=== PATIENT | female | born 1995 | race Caucasian/White ===

== ENCOUNTER 2016-06-03 15:10 | Emergency (ER) | payer OTHER ==
[2016-06-03 15:31] VITALS: BP 125/76; BMI 29.0
[2016-06-03 15:40] LABS: BILIRUBIN,URINE NEGATIVE (NEGATIVE); BLOOD/HEMOGLOBIN,URINE 1+ (NEGATIVE); GLUCOSE, URINE 4+ (NEGATIVE); KETONES,URINE 1+ (NEGATIVE); LEUKOCYTE ESTERASE ,URINE 1+ (NEGATIVE); NITRITES,URINE NEGATIVE (NEGATIVE); PROTEIN,URINE 1+ (NEGATIVE); UROBILINOGEN,URINE NORMAL (NORMAL)
[2016-06-03 15:54] LABS: APPEARANCE,URINE HAZY (CLEAR); BACTERIA,URINE TRACE /HPF (NEGATIVE); COLOR,URINE YELLOW (YELLOW); MUCUS,URINE FEW /HPF (NEGATIVE); RBC,URINE 0-2 /HPF (NEGATIVE); SQUAMOUS EPITHELIAL CELL,UR FEW /HPF (NEGATIVE)
[2016-06-03] MEDS ORDERED: XYLOCAINE VISCOUS ONE (16:11)
[2016-06-03] MEDS ORDERED: XYLOCAINE VISCOUS MT ONE (16:17)
--- NOTE | 2016-06-03 16:32 | DR.PREG ---
HPI - Time seen Time seen: 16:20 - PCP Primary Care Physician: JOLLY - HPI Comment HPI Comment: PATIENT IS G2PI 34 WEEKS DUE DATE O. LAST NIGHT REATAL STARTED. HEMORRHIOD WAS SWOLLEN AND PAIN. WORSE TODAY. NO ABDOMINAL PAIN OR VAGINAL BLEEDING OR DISCHARGE. MOVEMENT IS NORMAL. SEE OB WEEKLY. HAVE GESTATIONAL DIABETES. - Chief Complaint Chief Complaint Doctors Comments: HEMORRHOID PAIN AND SWELLING TIMES ONE DAY. Chief Complaint:: PT. C/O SEVERE RECTAL PAIN THAT STARTED LAST NIGHT. PT. DENIES ANY ABDOMINAL PAIN OR VAGINAL PRESSURE. - Nurses Notes Reviewed Nurses Notes Review: Yes - Source History Provided: Patient - Mode of Arrival Mode of Arrival: Ambulatory - Context Complains of: denies: Pelvic pain, Contractions, Vaginal bleeding, Decreased movement, Vaginal fluid leakage History of: Previous (GESTATIONAL DIABETES) Care: Yes - Location Location: pain: denies: Diffuse (RECTAL PAIN) - Quality Pain: Sharp Vaginal fluid leakage color: None - Timing Onset of Chief Complaint: 06/02/16 PMH - PMH Past Medical History: Yes Past Medical History Comment: GESTATIONAL DIABETES Past Surgical History: Yes Surgical History: - Family History History of Family Medical Conditions: No - Social History Does patient currently use any type of tobacco product: No Have you used tobacco products in the last 12 months: No Type of Tobacco Use: None Does any household member use tobacco: No Alcohol Use: None Do you use any recreational Drugs:: No Lives With: Family Lives Where: Home - infectious screening In the last 2 months have you had wt loss of >10#?: NO Have you had fever, night sweats or hemotysis?: No Have you traveled outside the country in the last 6 months?: No Isolation: Standard ROS - Review of Systems Constitutional: No Symptoms Reported Eyes: No Symptoms Reported ENTM: No Symptoms Reported Respiratoy: No Symptoms Reported Cardiovascular: No Symptoms Reported Gastrointestinal/Abdominal: Other (RECTAL PAIN) Genitourinary: Frequency (THIRD TRIMESTER), Other (RECTAL PAIN) Neurological: No Symptoms Reported Musculoskeletal: No Symptoms Reported Integumentary: No Symptoms Reported Hematologic/Lymphatic: No Symptoms Reported Endocrine: No Symptoms Reported All Other Systems: Reviewed and Negative PE - Vital Signs Vitals: Temperature 97.9 F Pulse Rate 112 Respiratory Rate 18 Blood Pressure [Left Arm] 141/94 Blood Pressure [Right Arm] 120/81 Blood Pressure 125/76 O2 Sat by Pulse Oximetry 99 - General Limitations: No Limitations General Appearance: Alert - Head Head Exam: Normal Inspection - Eyes Eye exam: Normal Appearance - ENT ENT Exam: Normal External Ear Exam - Neck Neck Exam: Normal Inspection - Chest Chest Inspection: Symmetric Chest Wall Rise - Respiratory Respiratory Exam: Normal Lung Sounds Bilat Respiratory Exam: Bilateral Clear to Auscultation - Cardiovascular Cardiovascular Exam: Regular Rate, Normal Rhythm, Normal Heart Sounds - Abdominal Exam Abdominal Exam: Normal Bowel Sounds, Soft, Other (HEMORRHOID IN RECTAL AREA INFLAME AND TENDER.) MDM - Additional Information Obtained Additional Information Obtained From: Family - Differential Diagnosis Differential Diagnosis: negative: Cystitis: acute (INFLAME HEMORRHOID IN RECTA AREA.) Course - Treatment Treatment: SEE ORDERS. - Education/Counseling Education/Counseling: Patient, Family, Education Educated On: Treatment, Diagnosis, Needs for Follow Up ROR - Labs Reviewed Laboratory: Specimen Type Clean catch urine 06/03/16 15:24 Urine Color Yellow (YELLOW) 06/03/16 15:24 Urine Appearance Hazy (CLEAR) 06/03/16 15:24 Urine pH 6.0 (5.0 - 8.0) 06/03/16 15:24 Ur Specific [place] 1.025 (1.000-1.030) 06/03/16 15:24 Urine Protein 1+ (NEGATIVE) 06/03/16 15:24 Urine Glucose (UA) 4+ (NEGATIVE) 06/03/16 15:24 Urine Ketones 1+ (NEGATIVE) 06/03/16 15:24 Urine Occult Blood 1+ (NEGATIVE) 06/03/16 15:24 Urine Nitrite Negative (NEGATIVE) 06/03/16 15:24 Urine Bilirubin Negative (NEGATIVE) 06/03/16 15:24 Urine Urobilinogen Normal (NORMAL) 06/03/16 15:24 Ur Leukocyte Esterase 1+ (NEGATIVE) 06/03/16 15:24 Urine RBC 0-2 /HPF (NEGATIVE) 06/03/16 15:24 Urine WBC 3-5 /HPF (NEGATIVE) 06/03/16 15:24 Ur Squamous Epith Cells Few /HPF (NEGATIVE) 06/03/16 15:24 Urine Bacteria Trace /HPF (NEGATIVE) 06/03/16 15:24 Urine Mucus Few /HPF (NEGATIVE) 06/03/16 15:24 Ur Culture Indicated? No/not indicated 06/03/16 15:24 - Diagnosis Discharge Problem: Hemorrhoids during in third trimester, Inflamed external hemorrhoid - Discharge Plan Disposition: HOME, SELF-CARE Condition: Stable Prescriptions: Hydrocortisone Supp 25 mg [Anucort-Hc Supp] 25 mg RECTAL BID PRN #24 supp PRN Reason: Hemmorhoid Itching/Discomfort Oxycodone/Acet 5 mg/325 mg [PERCOCET 5/325 MG *] 1 tab PO Q6H PRN #15 tab PRN Reason: Severe Pain - Follow ups/Referrals Follow ups/Referrals: OSEAS AZEVEDO [Primary Care Provider] - 3 days - Instructions Instructions: Hemorrhoids, [id number] Additional Instructions: RETURN TO ED IF WORSE.
== END 2016-06-03 16:46 | disposition home or self-care (01) ==
LOC: ER 15:18
DX: K64.4 Residual hemorrhoidal skin tags (principal); Z3A.34 34 weeks gestation of pregnancy
CPT/HCPCS: 81001; 99283; 99284

== ENCOUNTER → 2016-06-18 | Outpatient (CLI) | payer OTHER ==
[2016-06-03 15:31] VITALS: BP 125/76
[2016-06-18 15:37] LABS: BASOPHILS % (AUTO) 0.4 % (0.2-1.0); EOSINOPHILS % (AUTO) 0.4 % (0.9-2.9); HEMATOCRIT 26.9 % (36.0-47.0); HEMOGLOBIN 8.3 g/dL (12.0-16.0); LYMPHOCYTES # (AUTO) 2.4 X10^3/uL (1.3-2.9); LYMPHOCYTES % (AUTO) 22.4 % (21.0-51.0); MEAN CORPUSCULAR HEMOGLOBIN 20.4 pg (27.0-34.0); MEAN CORPUSCULAR HGB CONC 30.7 g/dL (33.0-35.0); MEAN CORPUSCULAR VOLUME 66.6 fL (80.0-100.0); MONOCYTES # (AUTO) 0.7 x10^3/uL (0.3-0.8); MONOCYTES % (AUTO) 6.8 % (0.0-13.0); NEUTROPHILS # (AUTO) 7.5 x10^3/uL (2.2-4.8); PLATELET COUNT 217 X10^3/uL (150.0-450.0); RED BLOOD COUNT 4.04 X10^6/uL (3.5-5.4); RED CELL DISTRIBUTION WIDTH 18.1 % (11.6-16.5); WHITE BLOOD COUNT 10.7 X10^3/uL (3.6-10.0)
[2016-06-18 15:57] LABS: BILIRUBIN,URINE NEGATIVE (NEGATIVE); BLOOD/HEMOGLOBIN,URINE 1+ (NEGATIVE); GLUCOSE, URINE NEGATIVE (NEGATIVE); KETONES,URINE NEGATIVE (NEGATIVE); LEUKOCYTE ESTERASE ,URINE 3+ (NEGATIVE); NITRITES,URINE NEGATIVE (NEGATIVE); PROTEIN,URINE 2+ (NEGATIVE); UROBILINOGEN,URINE NORMAL (NORMAL)
[2016-06-18 16:10] LABS: APPEARANCE,URINE CLOUDY (CLEAR); COLOR,URINE YELLOW (YELLOW)
[2016-06-18 16:11] LABS: AMORPHOUS SEDIMENT,UR TRACE /HPF (NEGATIVE); BACTERIA,URINE 2+ /HPF (NEGATIVE); SQUAMOUS EPITHELIAL CELL,UR NUMEROUS /HPF (NEGATIVE)
[2016-06-18 16:14] LABS: HYPOCHROMASIA 2+; MICROCYTOSIS 1+; PLATELET MORPHOLOGY COMMENT NORMAL (NORMAL)
[2016-06-18 17:11] LABS: BLOOD UREA NITROGEN 17 mg/dL (7-18); CALCIUM 9.4 mg/dL (8.5-10.1); CARBON DIOXIDE 23.1 mmol/L (21-32); CHLORIDE 107 mmol/L (98-107); CREATININE 0.79 mg/dL (0.55-1.02); GLUCOSE 76 mg/dL (65-99); SODIUM 141 mmol/L (136-145); eGFR BLACK RACES > 60 (>60); eGFR NON BLACK RACES > 60 (>60)
== END ==
LOC: LAB 14:57
PROVIDERS: ATTEND Specialist
DX: Z01.818 Encounter for other preprocedural examination (principal); Z34.83 Encounter for supervision of other normal pregnancy, third trimester
CPT/HCPCS: 36415; 80048; 81001; 85025; 85610; 85730; 86592; 86850; 86900; 86901; 87086

== ENCOUNTER 2016-06-24 06:14 | Inpatient (IN) | payer OTHER ==
[2016-06-24] MEDS ORDERED: LR 1000 ML IV 1,000 ML IV ONE ×2 (06:30→07:04)
[2016-06-24] MEDS ORDERED: NS 50 ML IV + SPIKE MINIBAG* 50 ML IV ONE (06:30)
[2016-06-24] MEDS ORDERED: ANCEF VIAL 1 GM ONE (06:31)
[2016-06-24] MEDS ORDERED: DURAMORPH ONE (07:04)
[2016-06-24] MEDS ORDERED: D5 1/2 NS 1000ML W PITOCIN 20 U/L 1,000 ML IV ONE (07:04)
[2016-06-24] MEDS ORDERED: NS IRRIGATION 1000 ML 1,000 ML IR ONE (07:55)
[2016-06-24] MEDS ORDERED: D5 1/2 NS 1000 ML 1,000 ML IV SCH (08:21)
[2016-06-24] MEDS ORDERED: ANCEF VIAL 1 GM 1 GM in NS 50 ML IV + SPIKE MINIBAG* 50 ML IV PRN (08:21)
[2016-06-24] MEDS ORDERED: PHENERGAN INJ 25 MG IVP PRN (08:39)
[2016-06-24] MEDS ORDERED: BENADRYL INJ 50 MG VIAL IVP PRN ×2 (08:39→08:52)
[2016-06-24] MEDS ORDERED: ZOFRAN INJ 4 MG VIAL IVP PRN ×2 (08:39→08:52)
[2016-06-24] MEDS ORDERED: REGLAN INJ 10 MG VIAL IVP PRN ×2 (08:39→08:52)
[2016-06-24] MEDS ORDERED: TORADOL 30 MG VIAL IVP PRN (08:52)
[2016-06-24] MEDS ORDERED: ADACEL TDaP IM ONE (08:52)
[2016-06-24] MEDS ORDERED: MYLICON TAB 80 MG CHEW PO PRN (08:52)
[2016-06-24] MEDS ORDERED: NARCAN INJ IVP PRN (08:52)
[2016-06-24] MEDS ORDERED: D5 1/2 NS 1000 ML 1,000 ML with PITOCIN 20 UNITS IV SCH ×2 (09:00)
[2016-06-24] MEDS: VALTREX TAB 1 GM PO SCH (10:57)
[2016-06-24] MEDS: ZANTAC PO SCH ×2 (10:57→20:59)
[2016-06-24] MEDS: PRENATAL PLUS PO SCH (10:58)
[2016-06-24] MEDS ORDERED: XYLOCAINE 2 % (PLAIN) ONE (15:16)
[2016-06-24] MEDS ORDERED: PITOCIN ONE (15:16)
[2016-06-24] MEDS ORDERED: ZOFRAN INJ 4 MG VIAL ONE (15:16)
[2016-06-24] MEDS ORDERED: DIPRIVAN VIAL ONE (15:16)
[2016-06-24] MEDS ORDERED: REGLAN INJ 10 MG VIAL ONE (15:16)
[2016-06-24] MEDS: FERROUS SULFATE PO SCH (19:30)
[2016-06-24] MEDS: PERCOCET TAB 5/325 MG PO PRN (20:58)
[2016-06-25] MEDS: PERCOCET TAB 5/325 MG PO PRN ×3 (05:10→21:21)
[2016-06-25 05:22] LABS: HEMATOCRIT 24.3 % (36.0-47.0); HEMOGLOBIN 7.5 g/dL (12.0-16.0)
[2016-06-25] MEDS: FERROUS SULFATE PO SCH ×2 (06:15→16:54)
[2016-06-25] MEDS: ZANTAC PO SCH ×2 (08:54→21:21)
[2016-06-25] MEDS: MOTRIN TAB 800 MG PO PRN ×2 (08:54→16:53)
[2016-06-25] MEDS: COLACE CAP 100 MG PO SCH ×2 (08:55→21:21)
[2016-06-25] MEDS: PRENATAL PLUS PO SCH (08:55)
[2016-06-25] MEDS: VALTREX TAB 1 GM PO SCH (09:00)
[2016-06-25] MEDS: BACTROBAN OINT TOP SCH ×3 (12:27→21:22)
[2016-06-26] MEDS: PERCOCET TAB 5/325 MG PO PRN ×2 (02:00→10:56)
[2016-06-26] MEDS: BACTROBAN OINT TOP SCH (06:06)
[2016-06-26] MEDS ORDERED: DEPO-PROVERA CONTRACEPTIVE INJ IM ONE (07:25)
[2016-06-26 08:03] VITALS: BP 139/89
[2016-06-26] MEDS: ZANTAC PO SCH (08:16)
[2016-06-26] MEDS: FERROUS SULFATE PO SCH (08:16)
[2016-06-26] MEDS: VALTREX TAB 1 GM PO SCH (08:16)
[2016-06-26] MEDS: PRENATAL PLUS PO SCH (08:16)
[2016-06-26] MEDS: MOTRIN TAB 800 MG PO PRN (08:17)
[2016-06-26] MEDS: COLACE CAP 100 MG PO SCH (08:18)
== END 2016-06-26 11:35 | disposition home or self-care (01) | DRG 765 ==
LOC: LD 06:14 → MED/SURG 09:35
PROVIDERS: ADMIT Specialist; ATTEND Specialist
PROC: 3E0234Z Introduction of Serum, Toxoid and Vaccine into Muscle, Percutaneous Approach (ICD-10-PCS; 2016-06-24)
PROC: 10D00Z1 Extraction of Products of Conception, Low, Open Approach (ICD-10-PCS; principal; 2016-06-24 07:30)
DX: O24.410 Gestational diabetes mellitus in pregnancy, diet controlled (principal); O40.3XX0 Polyhydramnios, third trimester, not applicable or unspecified; Z37.0 Single live birth; O36.63X0 Maternal care for excessive fetal growth, third trimester, not applicable or unspecified; O99.02 Anemia complicating childbirth; D50.8 Other iron deficiency anemias; O99.824 Streptococcus B carrier state complicating childbirth; B95.1 Streptococcus, group B, as the cause of diseases classified elsewhere; Z3A.38 38 weeks gestation of pregnancy; Z23 Encounter for immunization; O34.211 Maternal care for low transverse scar from previous cesarean delivery; N85.8 Other specified noninflammatory disorders of uterus
CPT/HCPCS: 36415; 85014; 85018; A4222; S0197; J0690; J1050; J1885; J2001; J2405; J2590; J2765; J3490; J7120